=== PATIENT | male | born 1960 | race Two or more races ===

== ENCOUNTER 2019-08-26 05:34 | Emergency (ER) | payer OTHER ==
[~2019-08-26] VITALS: Ht 170.2 cm; Wt 69.4 kg
[~2019-08-26 05:34] MED LIST: NABUMETONE500 MG PO; PERCOCET 5/3251 TAB PO
== END 2019-08-26 12:24 | disposition home or self-care (01) ==
LOC: ER 05:34
DX: L29.0 Pruritus ani (principal); R53.81 Other malaise

== ENCOUNTER 2021-05-04 10:21 | Outpatient (CLI) | payer OTHER | END 2021-05-04 10:22 | disposition home or self-care (01) | LOC: SONOGRAMA 10:21 | PROVIDERS: ATTEND Internal Medicine | DX: E04.2 Nontoxic multinodular goiter (principal) ==